=== PATIENT | male | born 1945 | race Caucasian/White ===

== ENCOUNTER → 2020-07-09 | Day surgery (SDC) | payer MEDICARE ==
[2020-07-04 09:33] LABS: BASOPHILS % 0.5 % (0.0-1.0); EOSINOPHILS # (AUTO) 0.3 (0.0-0.4); EOSINOPHILS % 3.8 % (0.0-6.0); HEMATOCRIT 37.3 % (38.2-49.6); HEMOGLOBIN 12.4 g/dL (14.0-18.0); LYMPHOCYTES # (AUTO) 1.5 (1.0-3.2); MEAN CORPUSCULAR HEMOGLOBIN 31.2 pg (28-32); MEAN CORPUSCULAR HGB CONC 33.2 g/dL (31-35); MEAN CORPUSCULAR VOLUME 93.7 fL (81-99); MONOCYTES % 12.5 % (4.4-11.3); NEUTROPHILS % 63.9 % (38.7-80.0); PLATELET COUNT 200 x10e3/uL (140-360); RED BLOOD COUNT 3.98 x10e6/uL (4.3-5.7); RED CELL DISTRIBUTION WIDTH 12.8 % (11.7-14.4)
[~2020-07-09] MED LIST: AMLODIPINE BESY10 MG PO; ASPIRIN81 MG PO; AVAPRO300 MG PO; AVODART0.5 MG PO; CENTRUM TABLET1 EACH PO; CO Q-10200 MG PO; FENTANYL CITRATE/PF 100MCG/2 ML INJ ONE; FLOMAX0.4 MG PO; GLUCAGON FOR INJ 1 MG VIAL ONE; HYOSCYAMINE 0.125 MG TAB ONE; LIDOCAINE HCL 2% LOCAL INJ 5 ML SDV VIAL INJ ONE; LIPITOR10 MG PO; LIPITOR20 MG PO; METOPROLOL SUC100 MG PO; OMEGA 3 1,0001 EACH PO; OSTEO BI-FLEX1 EAC1 PO; PROPOFOL IV EMULSION 10 MG/ML 20 ML VIAL ONE; TYLENOL325 M2; VITAMIN D-32000 UNIT PO; VITAMIN D3100 GM
[2020-07-09 09:00] VITALS: BP 140/81
[2020-07-09 09:34] LABS: % IRON SATURATION 10 % (15-50); IRON 31 ug/dL (65-175); TOTAL IRON BINDING CAPACITY 308 ug/dL (261-478); TRANSFERRIN 220 mg/dL (174-364)
--- NOTE | 2020-07-09 14:32 | Operative Report ---
DATE OF PROCEDURE: 07/09/2020 SURGEON: Nolberto Arnold MD PROCEDURE: Colonoscopy with polypectomy. INDICATIONS FOR COLONOSCOPY: Surveillance colonoscopy, personal history of colon polyps. MEDICATIONS: The patient was done under MAC, please see anesthesiologist's note. PROCEDURE IN DETAIL: With the patient in the left lateral decubitus position, a flexible fiberoptic Olympus colonoscope was inserted into the rectum with ease and advanced all the way to the cecum. Mucosa overlying the cecum appeared to be within normal limits. A sessile polyp approximately 1.5 cm in size was removed per cold snare polypectomy and the cold biopsy forceps. The rest of the ascending, transverse, and descending appeared to be within normal limits. Diverticular disease was noted in the sigmoid colon. The rectum appeared to be within normal limits. The scope was then retroflexed into the distal rectum and small internal hemorrhoids were noted, none of which was actively bleeding. The scope was then straightened out, it was subsequently withdrawn, and the patient tolerated the procedure well. IMPRESSION: 1. Ascending colon polyp, approximately 1.5 cm in size, sessile, removed per cold snare polypectomy and cold biopsy forceps. 2. Diverticulosis. 3. Internal hemorrhoids, none actively bleeding. PLAN: Initiate high-fiber, low-fat diet. Initiate high-fiber supplement. Timing of followup colonoscopy pending pathology report. Nolberto Arnold MD [facility] [id number] /[id number]
== END | disposition home or self-care (01) ==
LOC: OR 05:56
PROVIDERS: ATTEND Internal Medicine Gastroenterology
DX: Z09 Encounter for follow-up examination after completed treatment for conditions other than malignant neoplasm (principal); D12.2 Benign neoplasm of ascending colon; K57.30 Diverticulosis of large intestine without perforation or abscess without bleeding; K64.8 Other hemorrhoids; K21.9 Gastro-esophageal reflux disease without esophagitis; M06.9 Rheumatoid arthritis, unspecified; I10 Essential (primary) hypertension; R01.1 Cardiac murmur, unspecified; I25.810 Atherosclerosis of coronary artery bypass graft(s) without angina pectoris; E78.5 Hyperlipidemia, unspecified; Z88.2 Allergy status to sulfonamides; Z01.810 Encounter for preprocedural cardiovascular examination; Z01.812 Encounter for preprocedural laboratory examination; Z20.828 Contact with and (suspected) exposure to other viral communicable diseases; Z68.30 Body mass index [BMI] 30.0-30.9, adult; Z95.1 Presence of aortocoronary bypass graft
CPT/HCPCS: 36415 ×2; 45385; 82607; 82746; 83540; 84466; 85025; 85045; 93005; J1610; J2001; J2704; J3010; U0002; 45378

== ENCOUNTER → 2021-06-17 | Day surgery (SDC) | payer MEDICARE ==
[2021-06-15 11:05] LABS: BASOPHILS % 0.6 % (0.0-1.0); EOSINOPHILS # (AUTO) 0.3 (0.0-0.4); EOSINOPHILS % 3.6 % (0.0-6.0); HEMATOCRIT 37.1 % (38.2-49.6); HEMOGLOBIN 12.5 g/dL (14.0-18.0); LYMPHOCYTES # (AUTO) 1.3 (1.0-3.2); LYMPHOCYTES % 17.9 % (18.0-39.1); MEAN CORPUSCULAR HEMOGLOBIN 31.3 pg (28-32); MEAN CORPUSCULAR HGB CONC 33.7 g/dL (31-35); MONOCYTES % 13.4 % (4.4-11.3); NEUTROPHILS # (AUTO) 4.6 (2.1-6.9); NEUTROPHILS % 64.1 % (38.7-80.0); PLATELET COUNT 189 x10e3/uL (140-360); RED BLOOD COUNT 3.99 x10e6/uL (4.3-5.7); RED CELL DISTRIBUTION WIDTH 12.9 % (11.7-14.4)
[~2021-06-17] MED LIST changes: +BIOTIN1 MG PO; +CARVEDILOL12.5 MG PO; -FENTANYL CITRATE/PF 100MCG/2 ML INJ ONE; -GLUCAGON FOR INJ 1 MG VIAL ONE; -HYOSCYAMINE 0.125 MG TAB ONE; -LIDOCAINE HCL 2% LOCAL INJ 5 ML SDV VIAL INJ ONE; +MIDAZOLAM HCL 2 MG/2 ML VIAL ONE; -PROPOFOL IV EMULSION 10 MG/ML 20 ML VIAL ONE; +TYLENOL ARTHRITIS PO
[2021-06-17 10:10] VITALS: BP 145/76
== END | disposition home or self-care (01) ==
LOC: OR 07:34
PROVIDERS: ATTEND Internal Medicine Gastroenterology
DX: K63.5 Polyp of colon (principal); K57.30 Diverticulosis of large intestine without perforation or abscess without bleeding; K64.8 Other hemorrhoids; I25.810 Atherosclerosis of coronary artery bypass graft(s) without angina pectoris; I10 Essential (primary) hypertension; E78.5 Hyperlipidemia, unspecified; R06.02 Shortness of breath; Z88.2 Allergy status to sulfonamides; Z01.810 Encounter for preprocedural cardiovascular examination; Z01.812 Encounter for preprocedural laboratory examination; Z20.822 Contact with and (suspected) exposure to COVID-19; Z79.82 Long term (current) use of aspirin; Z68.30 Body mass index [BMI] 30.0-30.9, adult; Z95.1 Presence of aortocoronary bypass graft
CPT/HCPCS: 36415; 45378; 85025; 93005; J2250; U0002

== ENCOUNTER → 2021-10-12 | Outpatient (CLI) | payer MEDICARE ==
[~2021-10-12] MED LIST changes: -MIDAZOLAM HCL 2 MG/2 ML VIAL ONE
== END ==
LOC: RAD 14:54
DX: M25.551 Pain in right hip (principal)

== ENCOUNTER 2022-03-17 19:15 | Emergency (ER) | payer MEDICARE ==
[~2022-03-17] VITALS: Ht 177.8 cm; Wt 98.4 kg
[2022-03-17] MEDS ORDERED: IBUPROFEN 600 MG TAB PO STA (19:24)
[2022-03-17] MEDS ORDERED: Vancomycin IV 1 GM in SODIUM CHLORIDE 0.9% 250ML 250 ML IV SCH (19:30)
[2022-03-17] MEDS ORDERED: Morphine 4mg INJECTION 4 MG/ML INJ IV PRN (19:30)
[2022-03-17] MEDS ORDERED: SODIUM CHLORIDE 0.9% 1000ML 1,000 ML IV ONE (19:30)
[2022-03-17 19:42] LABS: BASOPHILS # (AUTO) 0.1 (0.0-0.1); BASOPHILS % 0.3 % (0.0-1.0); EOSINOPHILS # (AUTO) 0.1 (0.0-0.4); EOSINOPHILS % 0.6 % (0.0-6.0); HEMATOCRIT 30.3 % (38.2-49.6); LYMPHOCYTES # (AUTO) 0.6 (1.0-3.2); LYMPHOCYTES % 3.3 % (18.0-39.1); MEAN CORPUSCULAR HEMOGLOBIN 31.8 pg (28-32); MEAN CORPUSCULAR VOLUME 96.5 fL (81-99); MONOCYTES # (AUTO) 2.8 (0.2-0.8); NEUTROPHILS # (AUTO) 14.8 (2.1-6.9); NEUTROPHILS % 80.1 % (38.7-80.0); PLATELET COUNT 221 x10e3/uL (140-360); RED BLOOD COUNT 3.14 x10e6/uL (4.3-5.7); RED CELL DISTRIBUTION WIDTH 13.2 % (11.7-14.4)
[2022-03-17] MEDS ORDERED: ONDANSETRON HCL INJ 2MG/ML 2ML 2 MG/ML VIAL ONE (19:59)
[2022-03-17 20:02] LABS: ALBUMIN 3.2 g/dL (3.5-5.0); ANION GAP 12.9 mmol/L (8-16); CALCIUM 8.2 mg/dL (8.4-10.2); CREATININE, SERUM 1.22 mg/dL (0.72-1.25); POTASSIUM 3.9 mmol/L (3.5-5.1)
[2022-03-17 23:00] LABS: CLARITY,URINE CLEAR (CLEAR); COLOR,URINE YELLOW (YELLOW); KETONES,URINE TRACE (NEGATIVE); LEUKOCYTE ESTERASE ,URINE NEGATIVE (NEGATIVE); NITRITE,URINE NEGATIVE (NEGATIVE); PROTEIN,URINE DIPSTICK 1+ (NEGATIVE); URINE UROBILINOGEN 0.2 mg/dL (0.2 - 1)
[2022-03-17 23:07] LABS: AMORPHOUS SEDIMENT,URINE MODERATE (FEW); BACTERIA,URINE FEW /HPF; EPITHELIAL CELLS,URINE FEW /LPF; RBC,URINE 0-5 /HPF (0-5); WBC,URINE (MAN) 0-5 /HPF (0-5)
== END 2022-03-18 02:37 | disposition short-term general hospital (02) ==
LOC: ER 19:23
DX: L03.115 Cellulitis of right lower limb (principal); Z96.641 Presence of right artificial hip joint; Z20.822 Contact with and (suspected) exposure to COVID-19
CPT/HCPCS: 36415; 71045; 73502; 80053; 81001; 83605; 84484; 85025; 87040; 93005; 99284; J2270; J2405; J3370; J7030; J7050; U0002

== ENCOUNTER 2024-04-24 22:35 | Emergency (ER) | payer MEDICARE ==
[~2024-04-24] VITALS: Ht 177.8 cm; Wt 92.1 kg
[2024-04-24 22:55] VITALS: TEMP 97.5
[2024-04-24] MEDS ORDERED: OXYMETAZOLINE HCL 0.05% NAS 1 SPRAY BTL ONE (23:14)
[2024-04-24] MEDS: OXYMETAZOLINE HCL 0.05% NAS 1 SPRAY BTL ONE (23:23)
[2024-04-24 23:38] LABS: BASOPHILS # (AUTO) 0.1 (0.0-0.1); BASOPHILS % 0.7 % (0.0-1.0); EOSINOPHILS # (AUTO) 0.3 (0.0-0.4); EOSINOPHILS % 3.8 % (0.0-6.0); HEMATOCRIT 38.5 % (38.2-49.6); HEMOGLOBIN 12.6 g/dL (14.0-18.0); LYMPHOCYTES # (AUTO) 1.3 (1.0-3.2); LYMPHOCYTES % 15.2 % (18.0-39.1); MEAN CORPUSCULAR HEMOGLOBIN 31.7 pg (28-32); MEAN CORPUSCULAR HGB CONC 32.7 g/dL (31-35); MONOCYTES # (AUTO) 1.2 (0.2-0.8); MONOCYTES % 14.4 % (4.4-11.3); NEUTROPHILS # (AUTO) 5.4 (2.1-6.9); NEUTROPHILS % 65.5 % (38.7-80.0); PLATELET COUNT 186 x10e3/uL (140-360); RED BLOOD COUNT 3.97 x10e6/uL (4.3-5.7); RED CELL DISTRIBUTION WIDTH 12.8 % (11.7-14.4); WHITE BLOOD COUNT 8.22 x10e3/uL (4.8-10.8)
[2024-04-24 23:48] LABS: INR 0.99; PROTHROMBIN TIME 13.6 seconds (11.9-14.5)
[2024-04-24 23:49] LABS: PARTIAL THROMBOPLASTIN TIME 28.9 seconds (23.8-35.5)
[2024-04-25 00:12] LABS: ALBUMIN 4.1 g/dL (3.5-5.0); ALBUMIN/GLOBULIN RATIO 1.3 (0.8-2.0); BILIRUBIN,TOTAL 0.4 mg/dL (0.2-1.2); CALCIUM 9.4 mg/dL (8.4-10.2); CREATININE, SERUM 1.43 mg/dL (0.72-1.25); TOTAL PROTEIN 7.2 g/dL (6.5-8.1)
[2024-04-25 02:25] LABS: HEMATOCRIT 36.7 % (38.2-49.6); HEMOGLOBIN 11.9 g/dL (14.0-18.0)
[2024-04-25 02:45] VITALS: PULSE 65; RESP 18; O2SAT 98
== END 2024-04-25 03:03 | disposition home or self-care (01) ==
LOC: ER 22:39
DX: R04.0 Epistaxis (principal); I10 Essential (primary) hypertension; I50.9 Heart failure, unspecified; E78.5 Hyperlipidemia, unspecified; Z95.1 Presence of aortocoronary bypass graft; Z96.641 Presence of right artificial hip joint
CPT/HCPCS: 36415; 70450; 70486; 72125; 80053; 85014; 85018; 85025; 85610; 85730; 99284